=== PATIENT | male | born 2000 | race Caucasian/White ===

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

== ENCOUNTER 2021-03-11 10:50 | Emergency (ER) | payer OTHER, SELFPAY ==
[2021-03-11 10:52] VITALS: BP 137/81; PULSE 75; RESP 16; TEMP 36.6; O2SAT 98; BMI 19.0
--- NOTE | 2021-03-11 11:21 | [facility].EDGENADL ---
ED Disposition Clinical Impression: Laceration Disposition: Home, Self-Care Condition on Discharge: Good Instructions: DI for Skin Abscess Referrals: Milka Acevedo MD [Primary Care Provider] - - Critical Care Critical Care Time: No Attestation: On 03/11/21, the high probability of a clinically significant, sudden or life threatening deterioration of the following system(s) required my full and direct attention, intervention and personal management. The time I documented below is in addition to time spent performing reported procedures but includes the following listed in this critical care notation. Medical Decision Making - Medical Records Medical records reviewed: Yes: I reviewed the patient's medical records. - Javier Inquiry Pt receiving controlled substance: No Vital Signs: 03/11/21 10:52 Temperature 98 F Temperature Source Oral Pulse Rate [Radial] 75 Respiratory Rate 16 Blood Pressure [Right Arm] 137/81 Blood Pressure Mean [Right Arm] 99 Blood Pressure Position [Right Arm] Sitting 02 Sat by Pulse Oximetry 98 Oxygen Delivery Method Room Air Orders (Tests/Meds): ED MEDICATIONS Discontinued Medications Generic Name Dose Route Start Last Admin Trade Name Freq PRN Reason Stop Dose Admin Tetanus/Reduced Diphtheria/Acell Pertussis 0.5 ml 03/11/21 11:14 03/11/21 11:18 Tet/Diphth/Pert-Adult 0.5ml Syringe IM 03/11/21 11:15 0.5 ml .ONCE ONE Administration Medical Decision Narrative: Patient is a 20-year-old male presented to emergency department chief complaint of laceration on his left thumb. Patient has a simple laceration without any signs of neurovascular compromise, muscle injury, wound was examined cleaned with Hibiclens patient was given Tdap. Wound was then Dermabond and wrapped. General Adult HPI - General Chief complaint: Skin/Abscess/Foreign Body Stated complaint: WC Sliced thumb 0951 Time Seen by Provider: 03/11/21 11:00 Mode of Arrival: Ambulatory Limitations: No Limitations Description of Symptoms (Recalled from ER Triage Doc. by RN): to ed per pvtg car with c/o lac to lt thumb states at work placing an air conditioner and sliced thumb. flap lac noted no active bleeding noted - History of Present Illness HPI narrative: Patient is a 20-year-old male who is presenting to the emergency department with chief complaint of injury to his left thumb. Patient states that he is left hand dominent. He was placing the air conditioner and when it slipped, went over the palmar aspect of his left thumb. He is able to move the thumb without any difficulty, has full sensation in his thumb. States that his last tetanus shot was when incarcerated in high school. Denies any additional symptoms. - Related Data Previous Rx's Medication Instructions Recorded triamcinolone acetonide 0.1 % 1 applic TOPICAL TID #60 g 12/10/18 topical cream Allergies Allergy/AdvReac Type Severity Reaction Status Date / Time No Known Allergies Allergy Verified 12/10/18 13:04 [facility] History - Hepatitis A Screen Drug use history?: No High risk sexual behaviors?: No History of sexually transmitted infection?: No Currently employed?: No Childcare worker?: No Do you have indoor plumbing?: Yes Do you have electricity?: Yes Attestation statement:: This patient has been screened for Hepatitis A risk factors. I have reviewed the patient's past medical history: Yes Laterality Cases: Bilateral: Myringotomy (Ear Tubes) Amputation: No Fractures: No - Social History Smoking Status: Never smoker Alcohol Intake: never Occupational Status: employed, student Family Hx:: Heart Attack ROS Obtained: Yes Systems reviewed as appropriate & no additional complaints Physical Exam - General General appearance: alert, in no apparent distress - Head Head exam: atraumatic, normocephalic - Chest Chest inspection: Present: symmetric chest wall rise - Respiratory Respiratory exam: Abse
[2021-03-11 11:52] VITALS: BP 115/74; PULSE 78; RESP 18; TEMP 36.6; O2SAT 98
== END 2021-03-11 11:53 | disposition home or self-care (01) ==
PROVIDERS: Emergency Provider Emergency Medicine; PCP Family Medicine
DX: S61.012A Laceration without foreign body of left thumb without damage to nail, initial encounter (principal); W26.8XXA Contact with other sharp object(s), not elsewhere classified, initial encounter; Y92.69 Other specified industrial and construction area as the place of occurrence of the external cause; Y99.0 Civilian activity done for income or pay; Z23 Encounter for immunization
CPT/HCPCS: 12001; 90471; 90715; 99282

== ENCOUNTER → 2021-09-04 11:42 | Outpatient (CLI) | payer BC, SELFPAY | PROVIDERS: PCP Family Medicine; Visit Provider Obstetrics & Gynecology | DX: Z36.0 Encounter for antenatal screening for chromosomal anomalies (principal) | CPT/HCPCS: 36415 ==